=== PATIENT | female | born 1980 | race Caucasian/White ===

== ENCOUNTER 2022-02-25 08:58 | Outpatient (CLI) | payer MEDICAID, SELFPAY ==
--- NOTE | ~2022-02-25 | US_ITS ---
EXAMINATION: US abdomen limited DATE: 02/25/2022 10:30 INDICATION: UMBILICAL PAIN . TECHNIQUE: Grayscale and Doppler ultrasound images of the umbilical region were obtained. COMPARISON: None. FINDINGS: Grayscale sonographic images were obtained of the umbilical area and area of pain. No solid or cystic mass detected. No umbilical or nearby ventral hernia detected. No sonographic abnormality. IMPRESSION: No hernia detected. No sonographic abnormality detected in the area of clinical concern. Reviewed, dictated and finalized at location K.
--- NOTE | ~2022-02-25 | MM_ITS ---
EXAMINATION: MM screening imani BI w mariangel HISTORY: Screening mammogram TECHNIQUE: Craniocaudal and mediolateral oblique 3-D tomosynthesis images were obtained and synthetic 2-D images were generated. CAD analysis was submitted and interpreted. COMPARISON: No prior mammogram is available for comparison at this institution. BREAST PARENCHYMAL COMPOSITION: The breasts are extremely dense, which lowers the sensitivity of mamm ography. FINDINGS: There is no evidence of suspicious mass, calcification, or architectural distortion to sugg est malignancy in either breast. There has been no suspicious interval change. IMPRESSION: 1. No mammographic evidence of malignancy. 2. Recommend routine screening mammography in one year. BI-RADS Category 1: Negative Reviewed, dictated and finalized at location A.
== END 2022-02-25 08:59 | disposition home or self-care (01) ==
PROVIDERS: PCP Nurse Practitioner; Visit Provider Nurse Practitioner
DX: R10.33 Periumbilical pain (principal); Z12.31 Encounter for screening mammogram for malignant neoplasm of breast
CPT/HCPCS: 76705; 77063; 77067